=== PATIENT | female | born 1955 | race Caucasian/White ===

== ENCOUNTER 2017-06-23 16:57 | Emergency (ER) | payer MEDICARE, OTHER ==
--- NOTE | 2017-06-23 17:12 | ERNOTE ---
Date of Service: 06/23/17 Time Seen by Provider: 06/23/17 17:09 Stated Complaint: CHEST CONGESTION, SORE THROAT Presenting Symptoms:: cough Source: patient, RN notes reviewed Exam Limitations: no limitations Immunizations: IMMUNIZATION HX Immunizations Up to Date Yes History of Influenza Vaccine Yes Hx Pneumococcal Vaccination Yes Allergies/Adverse Reactions: Allergies No Known Allergies Allergy (Verified 06/23/17 17:07) Home Medications: HOME MEDICATIONS Amox Tr/Potassium Clavulanate [Augmentin 875-125 Tablet] 875 mg PO Q12H #20 tab 06/23/17 [Last Taken Unknown] Metoprolol Succinate [Toprol Xl] 50 mg PO DAILY 06/23/17 [Last Taken Unknown] Promethazine HCl/Codeine [Prometh-Codein 6.25-10 mg/5 ml] 5 ml PO Q4H PRN #120 ml 06/23/17 [Last Taken Unknown] predniSONE [Prednisone] 2 tab PO DAILY #10 tab 06/23/17 [Last Taken Unknown] - History of Present Ilness Narrative: 61 year old female presents to the ED for a cough for a week. She also reports headache, sore throat and nasal congestion. She has been taking OTC cough and cold meds without much improvement. She feels as though she has had a fever. She reports feeling like something is stuck in her chest that she cannot cough up. Timing: getting worse Frequency/Possible Cause: Reports: unknown cause Prior Treatment: Denies: recently seen Review of Systems - Review of Systems Constitutional: Present: fatigue, malaise EYE: Absent: eye pain, eye discharge ENT: Present: nose congestion, nasal drainage, sore throat. Absent: ear pain Respiratory: Present: shortness of breath, cough. Absent: wheezing Cardiology: Absent: chest pain, palpitations, syncope Gastrointestinal/Abdominal: Present: nausea, eating less, drinking less. Absent : vomiting, diarrhea Genitourinary: Absent: frequency, dysuria Musculoskeletal: Present: muscle pain. Absent: joint pain Skin: Absent: rash, lesions Neurological: Present: headache. Absent: dizziness/light-headedness Endocrine: Present: no symptoms reported Hematologic/Lymphatic: Present: no symptoms reported Psych: Present: no symptoms reported - Patient's Past Medical History Patient History - Medical: No pertinent hx Patient History - Cardiac/Respiratory: Hypertension Patient History - Cancer: No Hx of Cancer Patient History - Surgical Procedures: Other Patient History - Other: None LMP (females 10-50): Menopausal - Social History Living Situations: home Psych History: No pertinent hx Smoking Status: Current every day smoker Cigarettes Packs Per Day: 0.1 Alcohol Use: none Drug Use: none - Immunizations Immunizations Up to Date: Yes Hx Pneumococcal Vaccination: Yes History of Influenza Vaccine: Yes Physical Exam - Physical Exam General Appearance: Present: wd/wn, alert, other - In no acute distress but appears to not feel well Head Exam: Present: normal inspection, tenderness - maxillary and frontal sinus regions bilaterally Eye Exam: Normal inspection: bilateral Ears, Nose, Throat: Present: nasal congestion, sinus pain/drainage, pharyngeal erythema. Absent: abnormal TM (R), abnormal TM (L), dry mucous membranes Neck: Present: normal inspection, nontender, supple Respiratory: Present: no respiratory distress, no accessory muscle use, expiration (prolonged), rhonchi. Absent: wheezing Cardiovascular/Chest: Present: regular rate, rhythm, no murmur Extremity Exam: Present: normal inspection, normal range of motion, no edema Neurological Exam: Present: alert, oriented, normal mood/affect Skin Exam: Present: normal color, warm/dry ED Progress - Results and Orders Patient's Lab Results:: I have reviewed the patient's lab results. - Vital Signs Patient's Vital Signs:: I have reviewed the patient's vital signs. Vital Signs: Vital Signs 06/23/17 17:00 Temperature 36.3 C L Pulse Rate 96 Respiratory 18 Rate Blood Pressure 139/95 O2 Sat by Pulse 94 Oximetry - Progress/Reassessment Chief Complaint: Upper Respiratory Symptoms Progress:: Improved Departure Clinical Impression: Sinusitis, acute Qualifiers: Sinusitis location: unspecified location Recurrence: non-recurrent Qualified Code(s): J01.90 - Acute sinusitis, unspecified Bronchitis, acute Qualifiers: Bronchitis organism: unspecified organism Qualified Code(s): J20.9 - Acute bronchitis, unspecified - Departure Disposition: Home self-care Condition: Good Instructions: Sinusitis, Adult, [id number], Acute Bronchitis Referrals: Pako Azar DO [Primary Care Provider] - Prescriptions: Amox Tr/Potassium Clavulanate [Augmentin 875-125 Tablet] 875 mg PO Q12H #20 tab predniSONE [Prednisone] 2 tab PO DAILY #10 tab Promethazine HCl/Codeine [Prometh-Codein 6.25-10 mg/5 ml] 5 ml PO Q4H PRN #120 ml PRN Reason: Cough
[2017-06-23 17:50] VITALS: BP 134/92
[2017-06-23] MEDS ORDERED: CODEINE PHOSPHATE/GUAIFENESIN 5 ML UDC ONE (17:55)
[2017-06-23] MEDS ORDERED: predniSONE 20 MG TABLET ONE (17:55)
[2017-06-23] MEDS ORDERED: AMOX TR/POTASSIUM CLAVULANATE 875 MG TABLET ONE (17:55)
[2017-06-23] MEDS: AMOX TR/POTASSIUM CLAVULANATE 875 MG TABLET PO ONE ×2 (17:57→18:03)
[2017-06-23] MEDS: predniSONE 20 MG TABLET PO ONE ×2 (17:58→18:06)
[2017-06-23] MEDS: CODEINE PHOSPHATE/GUAIFENESIN 5 ML UDC PO ONE ×2 (17:58→18:05)
== END 2017-06-23 18:19 | disposition home or self-care (01) ==
LOC: ER 16:57
DX: F17.200 Nicotine dependence, unspecified, uncomplicated; J01.90 Acute sinusitis, unspecified; J20.9 Acute bronchitis, unspecified